=== PATIENT | female | born 1990 | race Caucasian/White ===

== ENCOUNTER → 2017-01-09 | Outpatient (CLI) | payer OTHER ==
[~2017-01-09] MED LIST: ALPR0.25 PO; LEVO112T4 PO; ONDA4TAB9 PO
[2017-01-09 13:06] LABS: C-REACTIVE PROTEIN < 0.29 mg/dl (0-0.29); RHEUMATOID FACTOR < 10.0 U/mL (0-15)
[2017-01-13 12:30] LABS: ANTI-CENTROMERE AB <1.0 NEG AI (<1.0 NEG); ANTI-SS-A <1.0 NEG AI (<1.0 NEG); ANTI-SS-B <1.0 NEG AI (<1.0 NEG); DNA ds CRITHIDIA NEGATIVE (NEGATIVE); MICROSOMAL AB 44 IU/ML (<9); Sm Antibody <1.0 NEG AI (<1.0 NEG)
== END | disposition home or self-care (01) ==
LOC: C.LAB1850 10:45
PROVIDERS: ATTEND Internal Medicine
DX: O90.5 Postpartum thyroiditis (principal); R53.83 Other fatigue; M25.441 Effusion, right hand

== ENCOUNTER → 2017-05-21 | Outpatient (CLI) | payer OTHER | END | disposition home or self-care (01) | LOC: C.LAB1850 15:42 | PROVIDERS: ATTEND Internal Medicine | DX: E03.9 Hypothyroidism, unspecified (principal) ==

== ENCOUNTER → 2017-10-05 | Outpatient (CLI) | payer OTHER ==
[2017-10-05 12:20] LABS: HEMATOCRIT 43.6 % (37-47); HEMOGLOBIN 15.2 g/dL (12.0-16.0); MEAN CELL VOLUME 94.6 fL (80-100); MEAN CORPUSCULAR HGB CONC 34.9 g/dl (32-36); MEAN PLATELET VOLUME 11.9 fL (7.4-10.4); PLATELET COUNT 170 K/uL (130-400); RED CELL DISTRIBUTION WIDTH CV 13.3 % (11.5-14.5); RED CELL DISTRIBUTION WIDTH SD 45.3 fL (36.4-46.3); WHITE BLOOD COUNT 4.52 K/uL (4.8-10.8)
[2017-10-05 12:24] LABS: BLOOD UREA NITROGEN 10 mg/dl (7-18); CALCIUM 9.2 mg/dl (8.5-10.1); CARBON DIOXIDE 24 mmol/L (21-32); CHOLESTEROL 88 mg/dl (0-200); CREATININE 0.72 mg/dl (0.60-1.20); GLUCOSE 86 mg/dl (70-99); SODIUM 140 mmol/L (136-145)
[2017-10-05 12:35] LABS: LDL CHOLESTEROL CALCULATED 36 mg/dl
== END | disposition home or self-care (01) ==
LOC: C.LABPBG 10:31
PROVIDERS: ATTEND Internal Medicine
DX: E03.9 Hypothyroidism, unspecified (principal); R53.83 Other fatigue; Z13.220 Encounter for screening for lipoid disorders

== ENCOUNTER 2017-11-18 12:29 | Emergency (ER) | payer OTHER ==
[~2017-11-18] VITALS: Ht 157.5 cm; Wt 73.0 kg
[2017-11-18 12:44] VITALS: TEMP 36.7; Ht 157.5 cm; Wt 73.0 kg
[2017-11-18] MEDS ORDERED: ACETAMINOPHEN IV 100 ML IV STA (13:34)
[2017-11-18] MEDS ORDERED: ONDANSETRON INJ 2 MG/ML 2 ML VIAL IV STA (13:34)
[2017-11-18] MEDS ORDERED: SODIUM CHLORIDE 0.9% 1000ML 1,000 ML IV STA (13:34)
[2017-11-18] MEDS ORDERED: THYR90TA PO (13:41)
[2017-11-18] MEDS ORDERED: OPTIRAY 320 IV PRN (13:45)
--- NOTE | 2017-11-18 13:59 | EMERGENCY ROOM VISIT NOTE ---
ED Visit Note First contact with patient: 13:06 CHIEF COMPLAINT: Abdominal pain HISTORY OF PRESENTING ILLNESS: This is a 27-year-old female who presents to the emergency department with complaints of abdominal pain that started 2 days ago. Patient states the pain started around her umbilicus and has moved down to her right lower quadrant. She reports associated nausea and a poor appetite. She states the pain is constant, describes as a dull ache, is worse with movement and walking, better with rest, currently rates as 3/10. She went to an urgent care today and was sent to the emergency department for further evaluation. She reports bilateral tubal ligation in 2013, denies any other abdominal surgeries. She has been taking Tylenol and ibuprofen with no improvement in her pain. Her last dose of Tylenol was last night, last dose of ibuprofen was 5 AM today. She denies any fevers or chills, vomiting, diarrhea, urinary symptoms, abnormal vaginal bleeding or discharge, chest pain, shortness of breath, dizziness or syncope. REVIEW OF SYSTEMS: A complete 10 point review of systems was reviewed with the patient with pertinent positives and negatives as per history of present illness. All else were negative. PAST MEDICAL HISTORY: Hypothyroidism, anxiety SOCIAL HISTORY: Lives at home. Denies tobacco, alcohol, recreational drug use. ALLERGIES: No known allergies. PHYSICAL EXAM: CONSTITUTIONAL: Pleasant and cooperative. No acute distress. Well appearing and well nourished. HEENT: Normocephalic, atraumatic. Pupils equal, round and reactive to light, EOMI. TMs normal. Pharynx normal. Moist mucous membranes. NECK: Supple, full active range of motion without discomfort. RESPIRATORY: Clear to auscultation bilaterally with no wheezing, crackles, rhonchi or stridor. Equal expansion bilaterally. CARDIOVASCULAR: Regular rate and rhythm with no murmurs, rubs or gallops. Normal peripheral perfusion. No edema. GASTROINTESTINAL: Moderately tender in the right lower quadrant abdomen, positive rebound, positive McBurney's point tenderness. Positive Rovsing. Abdomen is soft, nondistended. No CVA tenderness. No palpable masses or HSM. Bowel sounds present in all quadrants. MUSCULOSKELETAL: Full range of motion of all joints without discomfort. INTEGUMENTARY: No rash or other significant dermatologic conditions noted. NEUROLOGIC: Alert and oriented X 4 with normal affect. No focal neurologic deficits noted. Normal strength and sensation all 4 extremities. Normal speech. Normal gait observed. ED COURSE AND MEDICAL DECISION MAKING: CC: Patient presenting with complaint of abdominal pain DIFFERENTIAL DIAGNOSIS: Includes, but not limited to appendicitis, mesenteric adenitis, ovarian cyst, ovarian torsion, ectopic , UTI, pyelonephritis , gastroenteritis, food poisoning, colitis, among others. INTERPRETATION OF LABS: No leukocytosis, no anemia, no significant electrolyte abnormalities, normal renal function, normal liver enzymes and lipase. UA negative, urine negative. IMAGING: ABD/PELVIS IV CONTRAST ONLY CLINICAL HISTORY: 27 years-old Female presenting with RLQ pain, midepigastric pain since Thursday, migrated to the right lower extremity, nausea, concern for appendicitis. TECHNIQUE: Multidetector CT of the abdomen and pelvis was performed after the administration of intravenous contrast. IV contrast: 94 mL of Optiray 320. A dose lowering technique was used consistent with the principles of ALARA (as low as reasonably achievable). COMPARISON: 04/10/2015. CT DOSE (mGy.cm): The estimated cumulative dose is 417.66 mGy.cm. FINDINGS: Stave Bolt Equalizer topogram: Unremarkable. Lung bases: Minimal basilar opacities, likely atelectasis. Normal heart size. No pericardial or pleural effusion. Liver: Normal morphology. Mild periportal edema suggested. No liver lesion. Patent hepatic vasculature. Biliary: No intrahepatic or extrahepatic biliary ductal dilatation. Normal gallbladder. Pancreas: Normal. Spleen: Normal. Adrenal glands: Normal. Kidneys and ureters: Normal. No nephrolithiasis. No hydronephrosis. Distal ureters poorly visualized. Bladder: Incompletely evaluated secondary to underdistention. Pelvic organs: Uterus and ovaries normal. Bowel: Normal appendix. Trace wall thickening of the distal transverse colon and splenic flexure may be present though this may be due to underdistention. No pericolonic inflammatory change. No bowel obstruction. Peritoneal cavity: No free fluid or intraperitoneal gas. Lymph nodes: No enlarged lymph nodes in the abdomen or pelvis. Vasculature: Aorta and IVC patent and normal in caliber. Abdominal wall: Small fat-containing umbilical hernia. Musculoskeletal: Normal. IMPRESSION: 1. Trace wall thickening of the distal transverse colon and splenic flexure without evidence of pericolonic inflammatory change. This could be due to underdistention or a mild colitis. No other evidence of acute intra-abdominal pathology. MEDICATION RECONCILIATION: I attest that I have personally reviewed the patient 's current medication list. INITIAL VITAL SIGNS REVIEW: I reviewed the patient's initial vital signs and interpret them as follows: T: Afebrile; BP: Hypertensive; HR: Within normal limits; RR: Within normal limits; Pulse Ox: Within normal limits on room air. Blood pressure screening: The patient was found to have an elevated blood pressure, which was felt to be situational. SUMMARY: Patient was evaluated at bedside, history and physical exam performed. Patient is alert and oriented, no acute distress, resting calmly in stretcher. Patient has tenderness in the right lower quadrant of the abdomen, extending up to the periumbilical region, positive rebound tenderness, positive Rovsing. Orders were placed at bedside for labs, UA and urine , IV fluids for hydration, IV Tylenol for pain, CT abdomen/pelvis to evaluate for appendicitis. Patient discussed with Dr. Resendez, who agrees with my assessment and plan. Labs and imaging reviewed as above, unremarkable, no evidence of appendicitis, does show findings consistent with mild colitis. Patient reassessed multiple times throughout ED stay, she reports that she is feeling approved after fluids and Tylenol. She is tolerating PO. Patient was updated on all results and plan for discharge, she was encouraged to follow closely with her primary care provider if her symptoms do not improve. Patient was also given strict return precautions should her symptoms worsen, she verbalized understanding. Patient was discharged home in stable condition and ambulatory. Problem List Medical Problems: ([phone] 42116 Status: Resolved (2) [id number] Status: Resolved ([phone] [id number] Status: Resolved (4) Celiac disease Status: Chronic (5) Cervicovaginal cytology: Low grade squamous intraepithelial lesion Status: Chronic (6) Dyspnea Status: Resolved (7) Family history of pulmonary embolism Status: Chronic (8) Idiopathic scoliosis Status: Chronic (9) Intrauterine Status: Resolved (10) Rash and nonspecific skin eruption Status: Resolved (11) Vaginal delivery Status: Resolved Current/Historical Medications Scheduled Ondasetron Odt (Zofran Odt), 4 MG SL Q6H Thyroid ([place] Thyroid), 1 TAB PO DAILY Scheduled PRN Alprazolam (Xanax), 0.25 MG PO BID PRN for Anxiety Allergies Coded Allergies: No Known Allergies (Unverified , 11/18/17) Vital Signs Date Time Temp Pulse Resp B/P (MAP) Pulse Ox O2 Delivery O2 Flow Rate FiO2 11/18/17 16:29 70 18 115/68 100 11/18/17 14:22 77 16 120/56 100 Room Air 11/18/17 12:44 36.7 88 16 149/74 100 Laboratory Results 11/18/17 13:45 Red Blood Count 4.48, Mean Corpuscular Volume 93.3, Mean Corpuscular Hemoglobin 33.0, Mean Corpuscular Hemoglobin Concent 35.4, Mean Platelet Volume 10.3, Neutrophils (%) (Auto) 70.7, Lymphocytes (%) (Auto) 15.1, Monocytes (%) (Auto) 9.4, Eosinophils (%) (Auto) 3.9, Basophils (%) (Auto) 0.6, Neutrophils # (Auto) 5.05, Lymphocytes # (Auto) 1.08, Monocytes # (Auto) 0.67, Eosinophils # (Auto) 0.28, Basophils # (Auto) 0.04 11/18/17 13:45 Test 11/18/17 13:10 11/18/17 13:45 Urine Color YELLOW Urine Appearance CLEAR (CLEAR) Urine pH 5.5 (4.5-7.5) Urine Specific [place] 1.024 (1.000-1.030) Urine Protein NEG (NEG) Urine Glucose (UA) NEG (NEG) Urine Ketones NEG (NEG) Urine Occult Blood NEG (NEG) Urine Nitrite NEG (NEG) Urine Bilirubin NEG (NEG) Urine Urobilinogen NEG (NEG) Urine Leukocyte Esterase NEG (NEG) Urine Test NEG (NEG) White Blood Count 7.14 K/uL (4.8-10.8) Red Blood Count 4.48 M/uL (4.2-5.4) Hemoglobin 14.8 g/dL (12.0-16.0) Hematocrit 41.8 % (37-47) Mean Corpuscular Volume 93.3 fL (80-100) Mean Corpuscular Hemoglobin 33.0 pg (25-34) Mean Corpuscular Hemoglobin Concent 35.4 g/dl (32-36) Platelet Count 196 K/uL (130-400) Mean Platelet Volume 10.3 fL (7.4-10.4) Neutrophils (%) (Auto) 70.7 % Lymphocytes (%) (Auto) 15.1 % Monocytes (%) (Auto) 9.4 % Eosinophils (%) (Auto) 3.9 % Basophils (%) (Auto) 0.6 % Neutrophils # (Auto) 5.05 K/uL (1.4-6.5) Lymphocytes # (Auto) 1.08 K/uL (1.2-3.4) Monocytes # (Auto) 0.67 K/uL (0.11-0.59) Eosinophils # (Auto) 0.28 K/uL (0-0.5) Basophils # (Auto) 0.04 K/uL (0-0.2) RDW Standard Deviation 43.8 fL (36.4-46.3) RDW Coefficient of Variation 12.8 % (11.5-14.5) Immature Granulocyte % (Auto) 0.3 % Immature Granulocyte # (Auto) 0.02 K/uL (0.00-0.02) Anion Gap 5.0 mmol/L (3-11) Est Creatinine Clear Calc Drug Dose 99.2 ml/min Estimated GFR () 118.1 Estimated GFR (Non- 101.9 BUN/Creatinine Ratio 14.5 (10-20) Calcium Level 8.8 mg/dl (8.5-10.1) Total Bilirubin 0.5 mg/dl (0.2-1) Direct Bilirubin 0.1 mg/dl (0-0.2) Aspartate Amino Transf (AST/SGOT) 15 U/L (15-37) Alanine Aminotransferase (ALT/SGPT) 28 U/L (12-78) Alkaline Phosphatase 80 U/L (45-117) Total Protein 7.5 gm/dl (6.4-8.2) Albumin 4.2 gm/dl (3.4-5.0) Medications Administered Medications (Trade) Dose Ordered Sig/Hillary Route Start Time Stop Time Status Last Admin Dose Admin Sodium Chloride 1,000 ml @ 999 mls/hr Q1H1M STAT IV 11/18/17 13:34 11/18/17 14:34 DC 11/18/17 13:47 999 MLS/HR Ondansetron HCl (Zofran Inj) 4 mg NOW STAT IV 11/18/17 13:34 11/18/17 13:36 DC 11/18/17 13:47 4 MG Acetaminophen 100 ml @ 400 mls/hr NOW STAT IV 11/18/17 13:34 11/18/17 13:48 DC 11/18/17 13:48 400 MLS/HR Departure Information Impression Primary Impression: Acute colitis Dispostion Home / Self-Care Condition GOOD Prescriptions Ondasetron Odt (ZOFRAN ODT) 4 Mg Tab 4 MG SL Q6H for Nausea, #6 TAB Prov: Silvana Pulido, [employer] OPERATOR 11/18/17 Referrals [facility] M.D. (PCP) Patient Instructions ED Food Poison Or Gastroenteritis, My [facility] Additional Instructions You have been treated in the Emergency Department for your Abdominal Pain. Your CT scan today shows signs of mild colitis (infection/inflammation of the colon). There is no evidence of appendicitis or other surgical problem. You have been prescribed Zofran to be used for any nausea or vomiting. Take as prescribed. For pain control, you can use the following [id number] medicines (if >12 yo): - Regular strength (325mg/tab) Tylenol (acetaminophen) 2 tabs every 4-6 hours as needed. Do not exceed 10 tablets in a 24 hour period. Avoid taking more than 3000mg of Tylenol per day. This includes any other sources of acetaminophen you may take on a regular basis. - Regular strength (200 mg/tab) Advil (ibuprofen) 3 tabs every 6-8 hours as needed. Do not exceed a dose of 2400 mg per day. Drink plenty of fluids to stay well hydrated. Please follow-up with your Primary Care Provider in the next few days for reassessment. Return to the emergency department if your symptoms persist or worsen, including worsening abdominal pain, fevers/chills, worsening nausea/vomiting, blood in your stool or urine, or any other concerns. Work Instructions Return To Work: 2 days
[2017-11-18 14:01] LABS: BASO % 0.6 %; BASO ABS # 0.04 K/uL (0-0.2); EOS % 3.9 %; EOS ABS # 0.28 K/uL (0-0.5); HEMATOCRIT 41.8 % (37-47); HEMOGLOBIN 14.8 g/dL (12.0-16.0); IG# 0.02 K/uL (0.00-0.02); LYMPH % 15.1 %; LYMPH ABS # 1.08 K/uL (1.2-3.4); MEAN CELL VOLUME 93.3 fL (80-100); MEAN CORPUSCULAR HGB CONC 35.4 g/dl (32-36); MEAN PLATELET VOLUME 10.3 fL (7.4-10.4); MONO % 9.4 %; MONO ABS # 0.67 K/uL (0.11-0.59); NEUT % 70.7 %; NEUT ABS # 5.05 K/uL (1.4-6.5); PLATELET COUNT 196 K/uL (130-400); RED CELL DISTRIBUTION WIDTH CV 12.8 % (11.5-14.5); RED CELL DISTRIBUTION WIDTH SD 43.8 fL (36.4-46.3); WHITE BLOOD COUNT 7.14 K/uL (4.8-10.8)
[2017-11-18 14:18] LABS: ALBUMIN 4.2 gm/dl (3.4-5.0); CALCIUM 8.8 mg/dl (8.5-10.1); CREATININE 0.79 mg/dl (0.60-1.20); POTASSIUM 3.6 mmol/L (3.5-5.1)
[2017-11-18 14:20] LABS: TOTAL PROTEIN 7.5 gm/dl (6.4-8.2)
--- NOTE | 2017-11-18 15:05 | DIAGNOSTIC IMAGING REPORT ---
ABD/PELVIS IV CONTRAST ONLY CLINICAL HISTORY: 27 years-old Female presenting with RLQ pain, midepigastric pain since Thursday, migrated to the right lower extremity, nausea, concern for appendicitis. TECHNIQUE: Multidetector CT of the abdomen and pelvis was performed after the administration of intravenous contrast. IV contrast: 94 mL of Optiray 320. A dose lowering technique was used consistent with the principles of ALARA (as low as reasonably achievable). COMPARISON: 04/10/2015. CT DOSE (mGy.cm): The estimated cumulative dose is 417.66 mGy.cm. FINDINGS: Color Dipper topogram: Unremarkable. Lung bases: Minimal basilar opacities, likely atelectasis. Normal heart size. No pericardial or pleural effusion. Liver: Normal morphology. Mild periportal edema suggested. No liver lesion. Patent hepatic vasculature. Biliary: No intrahepatic or extrahepatic biliary ductal dilatation. Normal gallbladder. Pancreas: Normal. Spleen: Normal. Adrenal glands: Normal. Kidneys and ureters: Normal. No nephrolithiasis. No hydronephrosis. Distal ureters poorly visualized. Bladder: Incompletely evaluated secondary to underdistention. Pelvic organs: Uterus and ovaries normal. Bowel: Normal appendix. Trace wall thickening of the distal transverse colon and splenic flexure may be present though this may be due to underdistention. No pericolonic inflammatory change. No bowel obstruction. Peritoneal cavity: No free fluid or intraperitoneal gas. Lymph nodes: No enlarged lymph nodes in the abdomen or pelvis. Vasculature: Aorta and IVC patent and normal in caliber. Abdominal wall: Small fat-containing umbilical hernia. Musculoskeletal: Normal. IMPRESSION: 1. Trace wall thickening of the distal transverse colon and splenic flexure without evidence of pericolonic inflammatory change. This could be due to underdistention or a mild colitis. No other evidence of acute intra-abdominal pathology. Electronically signed by: Tony Romero M.D. 11/18/2017 3:04 PM Dictated Date/Time: 11/18/2017 2:42 PM
[2017-11-18] MEDS ORDERED: ONDA4TAB10 SL (16:03)
[2017-11-18 16:29] VITALS: BP 115/68; PULSE 70; O2SAT 100
== END 2017-11-18 16:31 | disposition home or self-care (01) ==
LOC: C.EDB 12:30 → C.EDC 16:31
DX: K52.9 Noninfective gastroenteritis and colitis, unspecified (principal); E03.9 Hypothyroidism, unspecified; F41.9 Anxiety disorder, unspecified; K90.0 Celiac disease; M41.20 Other idiopathic scoliosis, site unspecified